=== PATIENT | female | born 1980 | race Caucasian/White ===

== ENCOUNTER 2016-10-11 20:52 | Emergency (ER) | payer BC ==
[~2016-10-11] VITALS: Ht 172.7 cm; Wt 127.0 kg
--- NOTE | ~2016-10-11 | CT2 ---
[facility] A Service of [facility] RADIOLOGY TEXT RESULTS PATIENT: BRAYAN MCGUIRE LOCATION: SED : 76 UNIT #: [id number] AGE: [address]: JONAS DUDLEY SEX: F ORDER DR: [id number] [address] [address] [id number] E MR#: [id number] Acc #: [id number] NAME: BRAYAN MCGUIRE : 1980 SEX: F STUDY DATE/TIME: 10/11/2016 22:51 UNIT: SED ROOM: STUDY DESCRIPTION: CT Abd and Pelv W Cont Attending Physician: Jonas Dudley Ordering Physician: Jonas Dudley Primary Care Physician: Estela Hugo M.D. MEDICAL IMAGING REPORT This report is preliminary unless electronic signature is present. EXAM CT abdomen and pelvis with contrast, 10/11/2016 HISTORY 35-year-old female in the ED complaining of upper abdomen pain, nausea and vomiting beginning earlier today. TECHNIQUE CT examination of the abdomen and pelvis was performed with IV contrast. GI contrast material was not administered. This CT exam was performed with one or more of the following radiation dose reduction techniques: automatic exposure control, adjustment of mA and/or kV according to patient size, and iterative reconstruction. FINDINGS ABDOMEN FINDINGS: Gallbladder wall thickening is noted, but the gallbladder is nondistended, and there is no bile duct dilatation. Liver, pancreas and spleen are normal in size and appearance. Both kidneys are negative with no evidence of urinary obstruction. Small bowel and colon are normal in caliber and appearance, as imaged. Normal appendix. Normal-caliber abdominal aorta. PELVIS FINDINGS: Uterus, ovaries, urinary bladder and rectum are within normal limits. No inguinal hernia. Limited lung base images show no active disease in the lower chest. IMPRESSION [facility] A Service of [facility] RADIOLOGY TEXT RESULTS PATIENT: BRAYAN MCGUIRE LOCATION: SED : 78 UNIT #: [id number] AGE: [address]: JONAS DUDLEY SEX: F ORDER DR: 1. Diffusely thickened gallbladder wall but no gallbladder distension or bile duct dilatation. Normal pancreas. 2. CT examination of the abdomen and pelvis is otherwise negative. Normal appendix. Dictated by... Anthony Roberson M.D. THIS IS AN ELECTRONICALLY VERIFIED REPORT Anthony Roberson M.D. at 10/12/2016 6:07 AM ANTHONY/maria del rosario TD: 10/12/2016 00:33 JOB #: [id number] MEDICAL IMAGING REPORT Page 1 of 1
[~2016-10-11 20:52] MED LIST: ALBUTEROL17 G1 IH; ALBUTEROL17 GM INH; ALLEGRA PO; ALLEGRA180 MG PO; ASMANEX0.24 G1 IH; BACTRIM DS TABL1 TA1 PO; BACTRIM DS TABL1 TAB PO; BACTROBAN22 GM TP; CELEXA20 MG PO; CIPRO PO; CLEOCIN PO; DAILY VALUE1 EACH PO; KEFLEX500 MG PO; LORTAB 5/500 TA1 TA1 PO; LORTAB 7.5-5001 TAB PO; MEDI-MECLIZINE25 M1 PO; MOBIC PO; NO MEDICATIONS; PEN-VEE K PO; PHENERGAN25 MG PO; PREDNISONE PO; PROAIR HFA8.5 GM IH; ROBITUSSIN A-C10 ML PO; ROBITUSSIN15 MG/5 ML PO; SINGULAIR PO; VICODIN 5/1 TAB 5/50 PO; VICODIN PO; VOLTAREN50 MG PO; ZITHROMAX1 G/PKT PO
[2016-10-11] MEDS ORDERED: SINGULAIR (20:59)
[2016-10-11] MEDS ORDERED: ELIQUIS2.5 MG (20:59)
[2016-10-11] MEDS ORDERED: CELEXA20 M1 (20:59)
[2016-10-11 22:11] LABS: URINE SOURCE CLEAN CATCH
[2016-10-11 22:13] LABS: BASOPHIL# 0.1 X10e3 (0-0.3); BASOPHIL% 0.6 % (0-2.5); EOSINOPHIL# 0.2 X10e3 (0-0.7); EOSINOPHIL% 2.8 % (0.0-7.0); HEMATOCRIT 34.5 % (35.0-45.0); HEMOGLOBIN 11.8 gm/dL (12.0-16.0); LYMPHOCYTE# 2.1 X10e3 (1.0-3.5); LYMPHOCYTE% 24.3 % (17.0-45.0); MEAN CELL VOLUME 83.4 FL (83-96); MEAN CORPUSCULAR HEMOGLOBIN 28.6 PG (28-34); MEAN CORPUSCULAR HGB CONC 34.3 g/dL (30-36); MEAN PLATELET VOLUME 7.9 FL (6.5-11.5); MONOCYTE# 0.6 X10e3 (0-1.0); MONOCYTE% 7.1 % (3.0-12.0); NEUTROPHIL# 5.5 X10e3 (1.5-7.1); NEUTROPHIL% 65.2 % (40-75); PLATELET COUNT 331 X10e3 (140-420); RED BLOOD COUNT 4.14 X10e (3.90-5.30); RED CELL DISTRIBUTION WIDTH 14.4 % (11.0-15.5); WHITE BLOOD COUNT 8.5 X10e3 (4.0-10.5)
[2016-10-11 22:13] LABS: URINE APPEARANCE CLEAR; URINE BILIRUBIN NEG (NEG); URINE BLOOD 3+ (NEG); URINE COLOR YELLOW; URINE GLUCOSE NEG (NORM); URINE KETONE NEG (NEG); URINE LEUKOCYTE ESTERASE NEG (NEG); URINE NITRATE NEG (NEG); URINE PROTEIN NEG (NEG); URINE SPECIFIC GRAVITY 1.025 (1.003-1.035); URINE UROBILINOGEN 0.2 MG/DL (NORM)
[2016-10-11 22:15] LABS: DIFF IND NO
[2016-10-11 22:16] LABS: MICRO INDICATED? YES
[2016-10-11 22:21] LABS: CULTURE INDICATED? NO; URINE BACTERIA NEG (NEG); URINE MUCUS PRESENT; URINE RBC 50-100 /[HPF] (0-2); URINE SQUAMOUS EPITHELIAL CELL MODERATE /[HPF]; URINE WBC 0-2 /[HPF] (0-5)
[2016-10-11 22:30] LABS: ALBUMIN SERUM 3.8 g/dL (3.5-5.0); BILIRUBIN,TOTAL 0.4 mg/dL (0.2-2.0); BUN/CREATININE RATIO 17.5; CALCIUM SERUM 8.9 mg/dL (8.4-10.2); CREATININE SERUM 0.8 mg/dL (0.6-1.4); GLOM FILT RATE Estimated 94.3 mL/min (>60); POTASSIUM 3.7 mmol/L (3.5-5.1); PROTEIN TOTAL SERUM 7.4 g/dL (6.0-8.3)
== END 2016-10-11 23:57 | disposition home or self-care (01) ==
LOC: SED 20:52
PROVIDERS: Nurse Practitioner
DX: K81.0 Acute cholecystitis (principal); F41.9 Anxiety disorder, unspecified; Z79.899 Other long term (current) drug therapy
CPT/HCPCS: 36415; 74177; 80053; 81003; 83690; 85025; 96374; 96375; 99284; J1170; J2405; Q9967

== ENCOUNTER 2016-10-12 17:32 | Inpatient (IN) | payer BC ==
[~2016-10-12] VITALS: Ht 170.2 cm; Wt 104.3 kg
--- NOTE | ~2016-10-12 | HP ---
Unit #: [id number] #: [id number] Patient: BRAYAN PACHECO [id number] [address] [place], [place] [address] [id number] I MR#: [id number] NAME: BRAYAN PACHECO ROOM: 216 Age: 35 Sex: F Admission Date: 10/12/2016 : 1980 Attending Physician: Shivam Vásquez M.D. Primary Care Physician: Estela Hugo M.D. HISTORY AND PHYSICAL Ms. Pacheco is a 35-year-old white female with acute mid epigastric right upper quadrant pain radiating to the back, consistent with possible biliary colic. She was seen in the emergency room and found to have gallstones and also thickened gallbladder wall on CT scan. Liver function test were normal, as well as serum lipase and amylase. Patient is admitted at this time for laparoscopic cholecystectomy. ALLERGIES The patient has no drug allergies. PAST MEDICAL HISTORY She is on medications to include Ventolin, Celexa, Eliquis, and Singulair. The Eliquis is for a blood disorder with lupus anticoagulant. She did not take it yesterday. We will give her a dose of Lovenox preop. She does have a history of respiratory issues, psychiatric issues, seasonal allergies. She has had a surgical history of sections x2, tubal ligation. SOCIAL HISTORY She is a nonsmoker and nondrinker. No illicit drug use. She does work occasionally outside the home. PHYSICAL EXAMINATION GENERAL: Cooperative, alert, white female. VITAL SIGNS: Temperature 99, pulse 70, respirations 20, blood pressure 124/60. HEENT: ENT is clear. There is no jaundice. Pupils equal, round, reactive to light and accommodation. CHEST: Clear to auscultation and percussion. CARDIAC: Rhythm is regular with no audible murmurs. ABDOMEN: Soft, 1-2+ right upper quadrant tenderness. No rebound or rigidity. No palpable bladder. No CVA tenderness. EXTREMITIES: Full range of motion 1-2+ peripheral pulses bilaterally. No significant edema. NEUROLOGIC: Cranial nerves II-XII intact with no gross motor or sensory deficits. IMPRESSION Acute biliary colic with possible acute cholecystitis. PLAN Laparoscopic cholecystectomy. Risks have been explained to patient and she understands. Unit #: [id number] #: [id number] Patient: BRAYAN PACHECO Dictated by Dunia Cheng/ray TD: 10/13/2016 07:54 JOB #: [id number] HISTORY AND PHYSICAL Page 1 of 1 X Mehdi Jeffries MD X HISTORY AND PHYSICAL
--- NOTE | ~2016-10-12 | US67 ---
[facility] A Service of [facility] RADIOLOGY TEXT RESULTS PATIENT: BRAYAN MCGUIRE LOCATION: [facility] 216-01 : [birth year] UNIT #: [id number] AGE: [address]: Shivam Vásquez MD SEX: F ORDER DR: [id number] [facility] [address] [facility]. [place], [place] [address] [id number] E MR#: [id number] Acc #: [id number] NAME: BRAYAN MCGUIRE : 1980 SEX: F STUDY DATE/TIME: 10/12/2016 19:11 UNIT: [facility] ROOM: STUDY DESCRIPTION: Gallbladder Attending Physician: Salvador Villatoro D.O. Ordering Physician: Salvador Villatoro D.O. Primary Care Physician: Estela Hugo M.D. MEDICAL IMAGING REPORT This report is preliminary unless electronic signature is present EXAM Gallbladder ultrasound, 10/12/2016. INDICATION Right upper quadrant pain for a day. History of gallstones for 13 years. TECHNIQUE Sonographic imaging of the right upper quadrant was performed. COMPARISON Correlation is made with CT, 10/11/2016. FINDINGS The pancreas is not well visualized or assessed. The liver demonstrates a long axis length of 17.5 cm. Increased echogenicity of the liver compared to the right kidney is most characteristic of fatty infiltration. The right kidney is nonobstructed measuring 10.3 cm long axis. Extrahepatic common bile duct measures 3 mm. There is cholelithiasis. Numerous gallstones are present. The largest of which probably measures on the order about 2.5 cm. There is gallbladder wall thickening measuring up to 7 mm. No distinct pericholecystic fluid. No sonographic Mckeon sign was described by the technologist, but the presence or absence of a sonographic Mckeon sign was not annotated on the study. Findings may reflect acute cholecystitis in the appropriate clinical context, although the degree of gallbladder wall thickening is somewhat greater than normally encountered with acute cholecystitis. This should be correlated clinically. Nuclear medicine HIDA scan could be performed for further assessment if clinically desired or warranted. IMPRESSION 1. Gallbladder wall thickening and cholelithiasis. This may reflect early acute cholecystitis in the appropriate clinical context. [facility] A Service of [facility] RADIOLOGY TEXT RESULTS PATIENT: BRAYAN MCGUIRE LOCATION: [facility] 216-01 : [birth year] UNIT #: [id number] AGE: [address]: Shivam Vásquez MD SEX: F ORDER DR: Nuclear medicine HIDA scan could also be pursued for further assessment. 2. No intra or extrahepatic biliary ductal dilatation. 3. Fatty infiltration of the liver. STAT * RESULT Dictated by... Gt Tobar M.D. THIS IS AN ELECTRONICALLY VERIFIED REPORT Gt Tobar M.D. at 10/12/2016 11:20 PM JEREMIE/praveena TD: 10/12/2016 19:47 JOB #: [id number] MEDICAL IMAGING REPORT Page 1 of 1 COPY
--- NOTE | ~2016-10-12 | OR ---
Unit #: [id number] #: [id number] Patient: BRAYAN MCGUIRE [id number] [address] [place], [place] [address] [id number] I MR#: [id number] NAME: BRAYAN MCGUIRE ROOM: 216 Date of Procedure: 10/13/2016 Admission Date: 10/12/2016 Surgeon: Darin Johnson Jr., M.D. : 1980 Attending Physician: Shivam Vásquez M.D. Primary Care Physician: Estela Hugo M.D. OPERATIVE REPORT INDICATIONS FOR PROCEDURE The patient is a 35-year-old obese white female, who presented to the emergency room complaining of severe mid epigastric abdominal pain with associated nausea. She has been worked up and noted to have evidence of probably acute cholecystitis and cholelithiasis. He is brought to the operating room at this time for laparoscopic cholecystectomy at her request. She understands the procedure including the risks, including that of infection, common duct injury, biliary leak, bleeding, and intra-abdominal organ injury, and consents. PREOPERATIVE DIAGNOSIS Acute on chronic cholecystitis. POSTOPERATIVE DIAGNOSIS Severe cholecystitis with distortion of the anatomy of the gallbladder. ANESTHESIA General with endotracheal intubation and 0.5% Marcaine with epinephrine locally. PROCEDURE PERFORMED Laparoscopic lysis of adhesions with laparoscopic cholecystectomy. Also, drainage of the right upper quadrant with a Rosendo-Brower drain. DESCRIPTION OF PROCEDURE The patient was positioned in supine position. After being anesthetized and intubated, was prepped and draped in routine fashion for laparoscopic cholecystectomy. A small supraumbilical incision was made approximately 1 cm in length. This was carried down to the fascia. The fascia was lifted between 2 Sofia clamps and Veress needle introduced into the abdomen. The abdomen was then inflated with CO2 gas. A 5-mm port was introduced into the abdomen followed by the camera. There was no evidence of any injury related to introduction of the port or the Veress needle. Brief intra-abdominal exploration was carried out. The patient was noted to have a large globular liver with significantly inflamed gallbladder that was wrapped with omentum. The remainder of the exam was not remarkable except for noting a small adhesion in the pelvis which was lysed with the camera. Two 5-mm ports were placed laterally and an 11-mm port just right of the upper midline. Multiple adhesions were dissected free of the gallbladder with hook scissors as well as blunt dissection, and the gallbladder was then lifted, dissection was carried out in the triangle of Calot. There were severe inflammatory changes and the gallbladder in the Unit #: [id number] #: [id number] Patient: BRAYAN MCGUIRE area was completely twisted almost 180 degrees near its neck with a large stone present. Dissection was meticulously carried out and the cystic duct and cystic artery were both identified and hemoclipped x4 and divided. Cystic duct was divided approximately a centimeter from its junction with the common duct. After the gallbladder was released, there were severe inflammatory changes posterior to this, but it was slowly dissected out of the gallbladder bed with the hook cautery using a current of 20 to 25, and after it was released, it was placed in an EndoCatch bag and brought out through the larger port site. The port site had to be dilated to remove this large dilated gallbladder. After it was removed, the port was replaced, subhepatic space checked. There was a small amount of oozing from the gallbladder bed. This was controlled with the Bovie cautery and 10 mm Rosendo-Brower drain was placed in the subhepatic space and brought out through the lateral port site as routine. It was fixed to the skin with 2-0 silk suture. The right upper quadrant was copiously irrigated with saline solution and after checking the gallbladder bed again with no evidence of any major bleeding, the clips on the cystic duct and cystic artery were visualized with no evidence of any leak or bleeding. A small amount of fluid was removed with the suction device and then the ports removed. The CO2 was expressed from the abdomen. The ports were injected with 0.5% Marcaine with epinephrine locally. The fascia in the larger port site was approximated with 2 [id number] 0 Vicryl sutures. After the wounds were irrigated and hemostasis was achieved with Bovie cautery, skin edges were approximated with stainless-steel skin clips and skin stapling device. Sterile dressings were applied externally. Estimated blood loss less than 200 mL. The patient received less than 2000 mL crystalloid solution during the procedure. Sponges and instruments counts were correct x3. There was one 10-mm Rosendo-Brower drain used in the subhepatic space and brought out through the lateral port site as noted above and no complications. The patient was taken to the recovery room with stable vital signs and in satisfactory condition. Dictated by... Darin Johnson Jr., M.D. JMB/phylicia TD: 10/14/2016 15:12 JOB #: [id number] CC: . OPERATIVE REPORT Page 1 of 1 X Darin Johnson MD X PROCEDURE OPERATIVE NOTE
--- NOTE | ~2016-10-12 | DS ---
Unit #: [id number] #: [id number] Patient: BRAYAN MCGUIRE [id number] [address] [address] [id number] I MR#: [id number] NAME: BRAYAN MCGUIRE ROOM: 216 Age: 35 Sex: F Admission Date: 10/12/2016 : 1980 Discharge Date: 10/16/2016 Attending Physician: Shivam Vásquez M.D. Primary Care Physician: Estela Hugo M.D. DISCHARGE SUMMARY DIAGNOSIS Cholecystitis. PROCEDURE Laparoscopic cholecystectomy. HOSPITAL COURSE Patient is a 35-year-old lady who presented with advanced cholecystitis. She underwent laparoscopic cholecystectomy. The Rosendo-Brower drain was placed. She was advanced toward a regular diet for which she tolerated. Drain outputs decreased and thus was discontinued. DISPOSITION The patient will be discharged home in good condition. DIET She is to follow a regular diet as tolerated. ACTIVITY Activity levels were discussed. FOLLOWUP She is to follow up with Dr. Johnson in two weeks. MEDICATIONS Regular home medications and [place] 7.5 mg q.4 p.r.n. Dictated by... Dunia Prieto/baldev TD: 10/16/2016 12:16 JOB #: [id number] Unit #: [id number] #: [id number] Patient: BRAYAN MCGUIRE DISCHARGE SUMMARY Page 1 of 1 X Shivam Vásquez MD X DISCHARGE SUMMARY
[~2016-10-12 17:32] MED LIST changes: +CELEXA20 M1; +ELIQUIS2.5 MG; +SINGULAIR
[2016-10-12 18:57] LABS: URINE SOURCE CLEAN CATCH
[2016-10-12 19:06] LABS: URINE APPEARANCE CLOUDY; URINE BILIRUBIN NEG (NEG); URINE BLOOD 3+ (NEG); URINE COLOR YELLOW; URINE GLUCOSE NEG (NEG); URINE KETONE TRACE (NEG); URINE LEUKOCYTE ESTERASE 1+ (NEG); URINE NITRATE NEG (NEG); URINE PROTEIN 1+ (NEG); URINE SPECIFIC GRAVITY 1.028 (1.003-1.035)
[2016-10-12 19:06] LABS: BASOPHIL% 0.6 % (0-2.5); EOSINOPHIL# 0.2 X10e3 (0-0.7); EOSINOPHIL% 2.2 % (0.0-7.0); HEMATOCRIT 33.5 % (35.0-45.0); LYMPHOCYTE# 1.5 X10e3 (1.0-3.5); LYMPHOCYTE% 18.8 % (17.0-45.0); MEAN CELL VOLUME 84.9 FL (83-96); MEAN CORPUSCULAR HGB CONC 32.9 g/dL (30-36); MEAN PLATELET VOLUME 7.6 FL (6.5-11.5); MONOCYTE# 0.7 X10e3 (0-1.0); MONOCYTE% 8.2 % (3.0-12.0); NEUTROPHIL# 5.6 X10e3 (1.5-7.1); NEUTROPHIL% 70.2 % (40-75); PLATELET COUNT 319 X10e3 (140-420); RED BLOOD COUNT 3.95 X10e (3.90-5.30); RED CELL DISTRIBUTION WIDTH 14.7 % (11.0-15.5)
[2016-10-12 19:08] LABS: CULTURE INDICATED? YES; URBCS1 AUWI 100-200 /[HPF] (0-2); URINE BACTERIA AUWI 2+ (NEGATIVE); URINE SQUAMOUS EPITHELIAL CELL MOD /[HPF]
[2016-10-12 19:09] LABS: DIFF IND NO
[2016-10-12 19:17] LABS: URINE CRYSTALS CALCIUM OXALATE /[HPF]
[2016-10-12 19:17] LABS: PARTIAL THROMBOPLASTIN TIME 24.4 SECONDS (23.5-31.3); PROTHROMBIN TIME (PATIENT) 11.1 SECONDS (10.0-11.7)
[2016-10-12 19:25] LABS: ALBUMIN SERUM 3.6 g/dL (3.5-5.0); ALKALINE PHOSPHATASE 80 U/L (32-92); ALT (SGPT) 24 U/L (10-40); AST (SGOT) 25 U/L (10-42); BILIRUBIN,TOTAL 0.3 mg/dL (0.2-2.0); BLOOD UREA NITROGEN 16 mg/dL (9-23); BUN/CREATININE RATIO 22.85; CALCIUM SERUM 8.6 mg/dL (8.4-10.2); CARBON DIOXIDE 26 mmol/L (22-31); CHLORIDE 103 mmol/L (100-111); CREATININE SERUM 0.7 mg/dL (0.6-1.4); GLOM FILT RATE Estimated 110.7 mL/min (>60); GLUCOSE FASTING 117 mg/dL (70-110); LIPASE 21 U/L (22-51); POTASSIUM 4.1 mmol/L (3.5-5.1); PROTEIN TOTAL SERUM 7.1 g/dL (6.0-8.3); SODIUM 137 mmol/L (135-145)
[2016-10-12 19:26] LABS: BILIRUBIN, DIRECT <0.1 mg/dL (0.0-0.2); BILIRUBIN,INDIRECT 0.2 mg/dL (0.0-0.9)
[2016-10-13 05:26] LABS: BASOPHIL% 0.5 % (0-2.5); EOSINOPHIL# 0.2 X10e3 (0-0.7); EOSINOPHIL% 3.2 % (0.0-7.0); HEMATOCRIT 31.5 % (35.0-45.0); HEMOGLOBIN 10.4 gm/dL (12.0-16.0); LYMPHOCYTE% 28.3 % (17.0-45.0); MEAN CELL VOLUME 85.5 FL (83-96); MEAN CORPUSCULAR HEMOGLOBIN 28.2 PG (28-34); MEAN PLATELET VOLUME 7.9 FL (6.5-11.5); MONOCYTE# 0.6 X10e3 (0-1.0); MONOCYTE% 8.6 % (3.0-12.0); NEUTROPHIL# 4.1 X10e3 (1.5-7.1); NEUTROPHIL% 59.4 % (40-75); PLATELET COUNT 283 X10e3 (140-420); RED BLOOD COUNT 3.69 X10e (3.90-5.30); RED CELL DISTRIBUTION WIDTH 14.6 % (11.0-15.5)
[2016-10-13 05:32] LABS: DIFF IND NO
[2016-10-13 06:06] LABS: ALBUMIN SERUM 3.3 g/dL (3.5-5.0); BILIRUBIN,TOTAL 0.4 mg/dL (0.2-2.0); CALCIUM SERUM 8.5 mg/dL (8.4-10.2); CREATININE SERUM 0.8 mg/dL (0.6-1.4); GLOM FILT RATE Estimated 94.3 mL/min (>60); POTASSIUM 4.2 mmol/L (3.5-5.1); PROTEIN TOTAL SERUM 6.5 g/dL (6.0-8.3)
[2016-10-13] MEDS ORDERED: ELIQUIS5 MG PO (06:10)
[2016-10-13] MEDS ORDERED: FERROUS GLUCON324 M2 PO (06:12)
[2016-10-13] MEDS ORDERED: DOXYCYCLINE MON50 M1 PO (06:13)
[2016-10-13] MEDS ORDERED: HYDROCODON-ACE1 EAC7 PO (06:14)
[2016-10-13] MEDS ORDERED: AMOXICILLIN875 MG PO (06:15)
[2016-10-13] MEDS ORDERED: MONTELUKAST SOD10 MG PO (06:16)
[2016-10-13] MEDS ORDERED: CITALOPRAM HBR40 MG PO (06:24)
[2016-10-14 05:16] LABS: HEMATOCRIT 33.3 % (35.0-45.0); HEMOGLOBIN 10.8 gm/dL (12.0-16.0); MEAN CELL VOLUME 84.9 FL (83-96); MEAN CORPUSCULAR HEMOGLOBIN 27.7 PG (28-34); MEAN CORPUSCULAR HGB CONC 32.6 g/dL (30-36); MEAN PLATELET VOLUME 7.7 FL (6.5-11.5); RED BLOOD COUNT 3.92 X10e (3.90-5.30); RED CELL DISTRIBUTION WIDTH 14.4 % (11.0-15.5)
[2016-10-14 05:17] LABS: WHITE BLOOD COUNT 11.3 X10e3 (4.0-10.5)
[2016-10-14 06:02] LABS: ALBUMIN SERUM 3.2 g/dL (3.5-5.0); BILIRUBIN,TOTAL 0.5 mg/dL (0.2-2.0); BUN/CREATININE RATIO 13.75; CALCIUM SERUM 8.5 mg/dL (8.4-10.2); CREATININE SERUM 0.8 mg/dL (0.6-1.4); GLOM FILT RATE Estimated 94.3 mL/min (>60); POTASSIUM 4.5 mmol/L (3.5-5.1); PROTEIN TOTAL SERUM 6.6 g/dL (6.0-8.3)
[2016-10-15 06:48] LABS: HEMATOCRIT 31.6 % (35.0-45.0); HEMOGLOBIN 10.4 gm/dL (12.0-16.0); MEAN CELL VOLUME 85.3 FL (83-96); MEAN CORPUSCULAR HGB CONC 32.8 g/dL (30-36); MEAN PLATELET VOLUME 8.3 FL (6.5-11.5); RED BLOOD COUNT 3.7 X10e (3.90-5.30); RED CELL DISTRIBUTION WIDTH 14.5 % (11.0-15.5); WHITE BLOOD COUNT 8.8 X10e3 (4.0-10.5)
[2016-10-16] MEDS ORDERED: NORCO 7.5-3251 EACH PO (07:22)
== END 2016-10-16 09:17 | disposition home or self-care (01) | DRG 419 ==
LOC: CED 17:32 → CEDOF 20:15 → C2A 20:15 → CED 20:15 → CEDOF 20:53 → C2A 21:20 → CEDOF 21:20 → C2A 10-16 09:17
PROVIDERS: Emergency Medicine; Surgery
PROC: 0FT44ZZ Resection of Gallbladder, Percutaneous Endoscopic Approach (ICD-10-PCS; principal; 2016-10-12)
PROC: 0WJF4ZZ Inspection of Abdominal Wall, Percutaneous Endoscopic Approach (ICD-10-PCS; 2016-10-12)
PROC: 0DNW4ZZ Release Peritoneum, Percutaneous Endoscopic Approach (ICD-10-PCS; 2016-10-12)
PROC: [UNRECOGNIZED PROCEDURE] (2016-10-12)
DX: K80.12 Calculus of gallbladder with acute and chronic cholecystitis without obstruction (principal); E66.9 Obesity, unspecified; Z68.36 Body mass index [BMI] 36.0-36.9, adult; K66.0 Peritoneal adhesions (postprocedural) (postinfection)
CPT/HCPCS: 36415; 76705; 80048; 80053; 80076; 81003; 83690; 84703; 85025; 85027; 85610; 85730; 87086; 88304; 96361; 96365; 96375; 99285; J0330; J1650; J2250; J2270; J2405; J2543; J2710; J3010